=== PATIENT | male | born 1985 | race Caucasian/White ===

== ENCOUNTER 2018-05-21 11:31 | Emergency (ER) | payer MEDICARE ==
[2018-05-21 11:46] VITALS: BP 153/78
--- NOTE | 2018-05-21 11:54 | EDM.PDOC ---
ED HPI GENERAL MEDICAL PROBLEM - General Chief Complaint: General Stated Complaint: BLOOD PRESSURE Time Seen by Provider: 05/21/18 11:35 - History of Present Illness INITIAL COMMENTS - FREE TEXT/NARRATIVE: HISTORY AND PHYSICAL: History of present illness: Patient is a 32-year-old white male presents with a concern of blood pressure check patient states he started any antihypertensive that was given to him by somebody else 3 days prior had no symptoms and just wanted a blood pressure check he denies any headache chest pain Darin breath or other concern. On arrival patient's blood pressure 153/78 Review of systems: As per history of present illness and below otherwise all systems reviewed and negative. Past medical history: As per history of present illness and as reviewed below otherwise noncontributory. Surgical history: As per history of present illness and as reviewed below otherwise noncontributory. Social history: No reported history of drug or alcohol abuse. Family history: As per history of present illness and as reviewed below otherwise noncontributory. Physical exam: HEENT: Atraumatic, normocephalic, pupils reactive, negative for conjunctival pallor or scleral icterus, mucous membranes moist, throat clear, neck supple, nontender, trachea midline. Lungs: Clear to auscultation, breath sounds equal bilaterally, chest nontender. Heart: S1S2, regular, negative for clicks, rubs, or JVD. Abdomen: Soft, nondistended, nontender. Negative for masses or hepatosplenomegaly. Negative for costovertebral tenderness. Pelvis: Stable nontender. Genitourinary: Deferred. Rectal: Deferred. Extremities: Atraumatic, negative for cords or calf pain. Neurovascular unremarkable. Neuro: Awake, alert, oriented. Cranial nerves II through XII unremarkable. Cerebellum unremarkable. Motor and sensory unremarkable throughout. Exam nonfocal. Diagnostics: Deferred Therapeutics: None Impression: #1 medical screening exam # 2 blood pressure check Definitive disposition and diagnosis as appropriate pending reevaluation and review of above. - Related Data Allergies Allergy/AdvReac Type Severity Reaction Status Date / Time No Known Allergies Allergy Verified 07/07/17 13:45 [facility] Home Meds: Home Meds Allopurinol [Zyloprim] 300 mg PO BID 07/15/16 [History] Ketorolac [Toradol] 10 mg PO Q6H PRN #15 tablet 07/15/16 [Rx] Indomethacin [Indomethacin ER] 75 mg PO DAILY 07/07/17 [History] Past Medical History Musculoskeletal History: Reports: Gout Psychiatric History: Reports: ADHD Social & Family History - Caffeine Use Caffeine Use: Reports: Coffee ED ROS GENERAL - Review of Systems Review Of Systems: ROS reveals no pertinent complaints other than HPI. ED EXAM, GENERAL - Physical Exam Exam: See Below (See dictation) Departure - Departure Time of Disposition: 11:56 Disposition: Home, Self-Care 01 Condition: Good Clinical Impression: Encounter for medical screening examination - Discharge Information *PRESCRIPTION DRUG MONITORING PROGRAM REVIEWED*: Not Applicable *COPY OF PRESCRIPTION DRUG MONITORING REPORT IN PATIENT MITCH: Not Applicable Additional Instructions: The following information is given to patients seen in the emergency department who are being discharged to home. This information is to outline your options for follow-up care. We provide all patients seen in our emergency department with a follow-up referral. The need for follow-up, as well as the timing and circumstances, are variable depending upon the specifics of your emergency department visit. If you don't have a primary care physician on staff, we will provide you with a referral. We always advise you to contact your personal physician following an emergency department visit to inform them of the circumstance of the visit and for follow-up with them and/or the need for any referrals to a consulting specialist. The emergency department will also refer you to a specialist when appropriate. This referral assures that you have the opportunity for followup care with a specialist. All of these measure are taken in an effort to provide you with optimal care, which includes your followup. Under all circumstances we always encourage you to contact your private physician who remains a resource for coordinating your care. When calling for followup care, please make the office aware that this follow-up is from your recent emergency room visit. If for any reason you are refused follow-up, please contact the [facility] emergency department at and asked to speak to the emergency department charge nurse. MERRY [facility] [address] [place] [id number] Follow-up primary care above called schedule routine appointment return as needed as discussed avoid taking other person's prescription medicines as discussed
== END 2018-05-21 12:05 | disposition home or self-care (01) ==
LOC: MW.ED 11:31
DX: Z01.30 Encounter for examination of blood pressure without abnormal findings (principal)
CPT/HCPCS: 99281; 99282

== ENCOUNTER 2018-05-29 22:26 | Emergency (ER) | payer MEDICARE ==
[2018-05-29] MEDS ORDERED: Albuterol/Ipratropium 3.0-0.5 MG/3 ML Neb Soln ONE (22:28)
[2018-05-29] MEDS ORDERED: Albuterol/Ipratropium 3.0-0.5 MG/3 ML Neb Soln NEB ONE ×2 (22:41→23:08)
[2018-05-29] MEDS ORDERED: methylPREDNISolone Sodium Succinate 125 MG/2 ML SDV IM ONE (23:08)
[2018-05-29 23:28] LABS: CHLORIDE,CL 106 mmol/L (98-107); SODIUM,NA 140 mmol/L (136-148)
[2018-05-29] MEDS ORDERED: Ketorolac 60 MG/2 ML SDV IM ONE (23:33)
--- NOTE | 2018-05-30 00:30 | EDM.PDOC ---
ED HPI GENERAL MEDICAL PROBLEM - General Chief Complaint: Respiratory Problem Stated Complaint: PT HAS DIFFICULTY BREATHING Time Seen by Provider: 05/29/18 22:32 Source of Information: Reports: Patient History Limitations: Reports: No Limitations - History of Present Illness INITIAL COMMENTS - FREE TEXT/NARRATIVE: HISTORY AND PHYSICAL: History of present illness: 32-year-old male presenting emergency department chief complaint of shortness of breath starting yesterday. Patient states that he does have a history of asthma and became more and more short of breath yesterday. Tonight he was unable to get a deep breath so came to emergency department for further evaluation. Denies any associated chest pain , palpitations, nausea, or vomiting. He also developed a cough recently with brownish yellow phlegm production. Patient states that he only has an inhaler and does not take a daily medication. Has not seen a primary care provider here. Also states that he is having some right ear pain. He has been placed on previously neomycin polymyxin otic drops for a external and internal ear infection. In addition he is complaining of some right great toe pain and states that he has a history of gout. States that he did just finish before a prescription for indomethacin. On exam patient has decreased breath sounds generally with generalized wheezing. Oxygen saturation is 96% on room air Right external canal is erythematous and swollen. Right great toe is swollen and warm and painful to touch. Patient is refusing chest x-ray and only wants labs. Review of systems: As per history of present illness and below otherwise all systems reviewed and negative. Past medical history: As per history of present illness and as reviewed below otherwise noncontributory. Surgical history: As per history of present illness and as reviewed below otherwise noncontributory. Social history: No reported history of drug or alcohol abuse. Family history: As per history of present illness and as reviewed below otherwise noncontributory. Physical exam: please see above H&P HEENT: Atraumatic, normocephalic, pupils reactive, negative for conjunctival pallor or scleral icterus, mucous membranes moist, throat clear, neck supple, nontender, trachea midline. Lungs: Clear to auscultation, breath sounds equal bilaterally, chest nontender. Heart: S1S2, regular, negative for clicks, rubs, or JVD. Abdomen: Soft, nondistended, nontender. Negative for masses or hepatosplenomegaly. Negative for costovertebral tenderness. Pelvis: Stable nontender. Genitourinary: Deferred. Rectal: Deferred. Extremities: Atraumatic, negative for cords or calf pain. Neurovascular unremarkable. Neuro: Awake, alert, oriented. Cranial nerves II through XII unremarkable. Cerebellum unremarkable. Motor and sensory unremarkable throughout. Exam nonfocal. Diagnostics: CBC, CMP, uric acid, patient refusing chest x-ray Therapeutics: DuoNeb 2, 125 mg Solu-Medrol IM 1, Toradol 60 mg IM 1, Azithromycin Z-Kennedy 5 days, diclofenac 35 mg by mouth 3 times a day, ofloxacin otic drops Impression: Acute asthma exacerbation Shortness of breath with wheezing Gouty flare Otitis externa Plan: After 2 DuoNeb nebs as well as Solu-Medrol IM patient had significant improvement in his breathing. I discussed following up with the primary care provider and he is in agreement. He was given a prescription for prednisone 40 mg by mouth daily 4 days. Patient uric acid was elevated to 9. He is an acute flare so gave the patient a prescription for diclofenac. He should follow-up with the primary care physician for this and consider daily medication. In addition right external canal was erythematous and swollen. Did give the patient a prescription for ofloxacin and instructed him to follow-up with the Indocin throat as he has had problems with sinus issues as well as ear issues. Definitive disposition and diagnosis as appropriate pending reevaluation and review of above. ribs/back Pain Score (Numeric/FACES): 3 - Related Data Allergies Allergy/AdvReac Type Severity Reaction Status Date / Time No Known Allergies Allergy Verified 05/29/18 22:32 Home Meds: Home Meds Albuterol Sulfate [Proair Respiclick] 90 mcg IH ASDIRECTED PRN 05/29/18 [History ] Past Medical History - Past Health History Medical/Surgical History: Denies Medical/Surgical History Respiratory History: Reports: Asthma Musculoskeletal History: Reports: Gout Psychiatric History: Reports: ADHD - Infectious Disease History Infectious Disease History: Reports: Chicken Pox Social & Family History - Tobacco Use Smoking Status *Q: Current Every Day Smoker Years of Tobacco use: 4 Packs/Tins Daily: 0.5 - Caffeine Use Caffeine Use: Reports: Coffee - Recreational Drug Use Recreational Drug Use: No ED ROS GENERAL - Review of Systems Review Of Systems: ROS reveals no pertinent complaints other than HPI. ED EXAM, GENERAL - Physical Exam Exam: See Below Course - Vital Signs Last Recorded V/S: Last Vital Signs Temp 96.3 F 05/29/18 22:29 Pulse 121 H 05/29/18 22:29 Resp 20 05/29/18 22:29 BP 181/107 H 05/29/18 22:29 Pulse Ox 95 05/29/18 22:29 - Orders/Labs/Meds Orders: Active Orders 24 hr Category Date Time Status RT Aerosol Therapy [RC] ASDIRECTED Care 05/29/18 22:41 Active RT Aerosol Therapy [RC] ASDIRECTED Care 05/29/18 23:08 Active Labs: Laboratory Tests 05/29/18 05/29/18 05/29/18 Range/Units 22:59 22:59 22:59 WBC 9.90 (4.0-11.0) K/uL RBC 4.78 (4.50-5.90) M/uL Hgb 13.2 (13.0-17.0) g/dL Hct 40.7 (38.0-50.0) % MCV 85.1 (80.0-98.0) fL MCH 27.6 (27.0-32.0) pg MCHC 32.4 (31.0-37.0) g/dL RDW Std Deviation 46.3 (28.0-62.0) fl RDW Coeff of Johnathan 15 (11.0-15.0) % Plt Count 175 (150-400) K/uL MPV 11.70 (7.40-12.00) fL Neut % (Auto) 68.8 (48.0-80.0) % Lymph % (Auto) 18.7 (16.0-40.0) % [place] % (Auto) 8.2 (0.0-15.0) % Eos % (Auto) 4.1 (0.0-7.0) % Baso % (Auto) 0.2 (0.0-1.5) % Neut # (Auto) 6.8 H (1.4-5.7) K/uL Lymph # (Auto) 1.9 (0.6-2.4) K/uL [place] # (Auto) 0.8 (0.0-0.8) K/uL Eos # (Auto) 0.4 (0.0-0.7) K/uL Baso # (Auto) 0.0 (0.0-0.1) K/uL Nucleated RBC % 0.0 /100WBC Nucleated RBCs # 0 K/uL Sodium 140 (136-148) mmol/L Potassium 3.8 (3.5-5.1) mmol/L Chloride 106 (98-107) mmol/L Carbon Dioxide 26.8 (21.0-32.0) mmol/L BUN 16 (7.0-18.0) mg/dL Creatinine 1.1 (0.8-1.3) mg/dL Est Cr Clr Drug Dosing 109.96 mL/min Estimated GFR (MDRD) > 60.0 ml/min Glucose 191 H (74-106) mg/dL Uric Acid 9.0 H (2.6-7.2) mg/dL Calcium 9.0 (8.5-10.1) mg/dL Total Bilirubin 0.3 (0.2-1.0) mg/dL AST 18 (15-37) IU/L ALT 48 (14-63) IU/L Alkaline Phosphatase 103 (46-116) U/L Total Protein 7.5 (6.4-8.2) g/dL Albumin 3.6 (3.4-5.0) g/dL Globulin 3.9 H (2.0-3.5) g/dL Albumin/Globulin Ratio 0.9 L (1.3-2.8) Meds: Medications Discontinued Medications Generic Name Dose Route Start Last Admin Trade Name Hughq PRN Reason Stop Dose Admin Albuterol/Ipratropium Confirm 05/29/18 22:28 Duoneb 3.0-0.5 Mg/3 Ml Administered 05/29/18 22:29 Dose 3 ml .ROUTE .STK-MED ONE Albuterol/Ipratropium 3 ml 05/29/18 22:41 05/29/18 22:51 Duoneb 3.0-0.5 Mg/3 Ml NEB 05/29/18 22:42 3 ml ONETIME ONE Administration Albuterol/Ipratropium 3 ml 05/29/18 23:08 05/29/18 23:26 Duoneb 3.0-0.5 Mg/3 Ml NEB 05/29/18 23:09 3 ml ONETIME ONE Administration Ketorolac Tromethamine 60 mg 05/29/18 23:33 Toradol IM 05/29/18 23:34 ONETIME ONE Methylprednisolone Sodium Succinate 125 mg 05/29/18 23:08 05/29/18 23:25 Solu-Medrol IM 05/29/18 23:09 125 mg ONETIME ONE Administration Departure - Departure Time of Disposition: 00:36 Disposition: Home, Self-Care 01 Condition: Good Clinical Impression: Acute asthma exacerbation Qualifiers: Asthma severity: mild Asthma persistence: intermittent Qualified Code(s): J45.21 - Mild intermittent asthma with (acute) exacerbation Gout flare Qualifiers: Gout site: toe Gout etiology: unspecified cause Laterality: right Qualified Code(s): M10.9 - Gout, unspecified Otitis externa Qualifiers: Otitis externa type: other infective Chronicity: acute Laterality: right Qualified Code(s): H60.391 - Other infective otitis externa, right ear - Discharge Information Referrals: PCP,None [Primary Care Provider] - Forms: ED Department Discharge Additional Instructions: My general discharge The following information is given to patients seen in the emergency department who are being discharged to home. This information is to outline your options for follow-up care. We provide all patients seen in our emergency department with a follow-up referral. The need for follow-up, as well as the timing and circumstances, are variable depending upon the specifics of your emergency department visit. If you don't have a primary care physician on staff, we will provide you with a referral. We always advise you to contact your personal physician following an emergency department visit to inform them of the circumstance of the visit and for follow-up with them and/or the need for any referrals to a consulting specialist. The emergency department will also refer you to a specialist when appropriate. This referral assures that you have the opportunity for follow-up care with a specialist. All of these measure are taken in an effort to provide you with optimal care, which includes your follow-up. Under all circumstances we always encourage you to contact your private physician who remains a resource for coordinating your care. When calling for follow-up care, please make the office aware that this follow-up is from your recent emergency room visit. If for any reason you are refused follow-up, please contact the [facility] Emergency Department at and asked to speak to the emergency department charge nurse. MERRY [facility] [address] [place] [address] MERRY [facility] [address] [place] [address], [address] [place] [address] Please call and follow-up with primary care provider as well as ear nose and throat/ENT be sure to tell them that you were seen in the emergency department and they wish for you to be seen as soon as possible. Take medication as prescribed. Return to emergency department if any new or worsening symptoms - My Orders Last 24 Hours: My Active Orders 05/29/18 22:41 RT Aerosol Therapy [RC] ASDIRECTED 05/29/18 23:08 RT Aerosol Therapy [RC] ASDIRECTED - Assessment/Plan Last 24 Hours: My Active Orders 05/29/18 22:41 RT Aerosol Therapy [RC] ASDIRECTED 05/29/18 23:08 RT Aerosol Therapy [RC] ASDIRECTED
[2018-05-30 01:33] VITALS: BP 145/94
== END 2018-05-30 00:46 | disposition home or self-care (01) ==
LOC: MW.ED 22:26
DX: J45.21 Mild intermittent asthma with (acute) exacerbation (principal); M10.9 Gout, unspecified; H60.391 Other infective otitis externa, right ear; F17.210 Nicotine dependence, cigarettes, uncomplicated
CPT/HCPCS: 36415; 80053; 84550; 85025; 94640; 96372; 99285; J2930; 99283; J7620-GY

== ENCOUNTER 2018-12-20 08:28 | Emergency (ER) | payer MEDICARE, BC ==
--- NOTE | 2018-12-20 08:40 | EDM.PDOC ---
ED HPI GENERAL MEDICAL PROBLEM - General Chief Complaint: Lower Extremity Injury/Pain Stated Complaint: right ankle pain Time Seen by Provider: 12/20/18 08:40 Source of Information: Reports: Patient - History of Present Illness INITIAL COMMENTS - FREE TEXT/NARRATIVE: HISTORY AND PHYSICAL: History of present illness: [Patient with history of gout presents with right ankle pain denies recent trauma although he states he has been doing symptoms off and on for 3 weeks is been on allopurinol but had ran out of allopurinol last week which does help as he should've stop this medication with the acute flareup. Is been taking indomethacin with limited benefit States he ankle pain began after hearing a pop while he was walking no fever nausea vomiting chills sweats] Review of systems: As per history of present illness and below otherwise all systems reviewed and negative. Past medical history: As per history of present illness and as reviewed below otherwise noncontributory. Surgical history: As per history of present illness and as reviewed below otherwise noncontributory. Social history: No reported history of drug or alcohol abuse. Family history: As per history of present illness and as reviewed below otherwise noncontributory. Physical exam: HEENT: Atraumatic, normocephalic, pupils reactive, negative for conjunctival pallor or scleral icterus, mucous membranes moist, throat clear, neck supple, nontender, trachea midline. Lungs: Clear to auscultation, breath sounds equal bilaterally, chest nontender. Heart: S1S2, regular, negative for clicks, rubs, or JVD. Abdomen: Soft, nondistended, nontender. Negative for masses or hepatosplenomegaly. Negative for costovertebral tenderness. Pelvis: Stable nontender. Genitourinary: Deferred. Rectal: Deferred. Extremities: Atraumatic, negative for cords or calf pain. Neurovascular unremarkable. Neuro: Awake, alert, oriented. Cranial nerves II through XII unremarkable. Cerebellum unremarkable. Motor and sensory unremarkable throughout. Exam nonfocal. Diagnostics: [Right ankle 3 views ] Therapeutics: Toradol patient refused colcrys Continue indomethacin Medrol dose pack Impression: [ gout ] Definitive disposition and diagnosis as appropriate pending reevaluation and review of above. Right Ankle Pain Score (Numeric/FACES): 10 - Related Data Allergies Allergy/AdvReac Type Severity Reaction Status Date / Time No Known Allergies Allergy Verified 12/20/18 08:42 Home Meds: Home Meds Allopurinol [Zyloprim] 300 mg PO DAILY 12/20/18 [History] Indomethacin [Indocin] 50 mg PO TID 12/20/18 [History] Past Medical History - Past Health History Medical/Surgical History: Denies Medical/Surgical History Respiratory History: Reports: Asthma Musculoskeletal History: Reports: Gout Psychiatric History: Reports: ADHD - Infectious Disease History Infectious Disease History: Reports: Chicken Pox Social & Family History - Family History Family Medical History: Noncontributory - Caffeine Use Caffeine Use: Reports: Coffee Review of Systems - Review of Systems Review Of Systems: See Below ED EXAM, GENERAL - Physical Exam Exam: See Below Course - Vital Signs Last Recorded V/S: Last Vital Signs Temp 97.5 F 12/20/18 08:40 Pulse 93 12/20/18 08:40 Resp 18 12/20/18 08:40 BP 181/104 H 12/20/18 08:40 Pulse Ox 94 L 12/20/18 08:40 - Orders/Labs/Meds Orders: Active Orders 24 hr Category Date Time Status Ankle Min 3V Rt [CR] Stat Exams 12/20/18 08:46 Taken Meds: Medications Discontinued Medications Generic Name Dose Route Start Last Admin Trade Name Freq PRN Reason Stop Dose Admin Ketorolac Tromethamine 60 mg 12/20/18 08:58 Toradol IM 12/20/18 08:59 ONETIME ONE Departure - Departure Time of Disposition: 09:13 Disposition: Home, Self-Care 01 Condition: Good Clinical Impression: Acute gout Qualifiers: Gout site: toe Gout etiology: unspecified cause Laterality: right Qualified Code(s): M10.9 - Gout, unspecified - Discharge Information Referrals: PCP,None [Primary Care Provider] - Forms: ED Department Discharge Additional Instructions: Education as prescribed Return if symptoms persist or worsen Follow-up with primary care in 2 weeks [facility] [address] [place] [id number] The following information is given to patients seen in the emergency department who are being discharged to home. This information is to outline your options for follow-up care. We provide all patients seen in our emergency department with a follow-up referral. The need for follow-up, as well as the timing and circumstances, are variable depending upon the specifics of your emergency department visit. If you don't have a primary care physician on staff, we will provide you with a referral. We always advise you to contact your personal physician following an emergency department visit to inform them of the circumstance of the visit and for follow-up with them and/or the need for any referrals to a consulting specialist. The emergency department will also refer you to a specialist when appropriate. This referral assures that you have the opportunity for follow-up care with a specialist. All of these measure are taken in an effort to provide you with optimal care, which includes your follow-up. Under all circumstances we always encourage you to contact your private physician who remains a resource for coordinating your care. When calling for follow-up care, please make the office aware that this follow-up is from your recent emergency room visit. If for any reason you are refused follow-up, please contact the [facility] emergency department at and asked to speak to the emergency department charge nurse. - My Orders Last 24 Hours: My Active Orders 12/20/18 08:46 Ankle Min 3V Rt [CR] Stat - Assessment/Plan Last 24 Hours: My Active Orders 12/20/18 08:46 Ankle Min 3V Rt [CR] Stat
[2018-12-20] MEDS ORDERED: Ketorolac 60 MG/2 ML SDV IM ONE (08:58)
--- NOTE | 2018-12-20 09:21 | CR ---
EXAMINATION: Right ankle HISTORY: Pain COMPARISON: None TECHNIQUE: 3 views FINDINGS/IMPRESSION: There is no acute osseous abnormality, dislocation, or fracture. Bone mineralization, ankle mortise, and joint spaces are preserved. No significant focal soft tissue swelling.
[2018-12-20 09:34] VITALS: BP 172/102
== END 2018-12-20 09:32 | disposition home or self-care (01) ==
LOC: MW.ED 08:28
DX: M10.9 Gout, unspecified (principal)
CPT/HCPCS: 73610-26-RT; 73610-RT; 99283-25